=== PATIENT | female | born 1955 | race African-American/Black ===

== ENCOUNTER 2018-04-21 19:32 | Inpatient (IN) ==
[2018-04-21] MEDS ORDERED: DEXTROSE 50% 25 GM/50 ML SYRINGE IV STA (19:57)
[2018-04-21] MEDS ORDERED: SODIUM CHLORIDE 0.9% 1,000 ML IV STA ×2 (19:57→21:25)
[2018-04-21] MEDS ORDERED: PANTOPRAZOLE 40 MG VIAL IV STA (19:59)
[2018-04-21] MEDS ORDERED: ONDANSETRON 4 MG/2 ML VIAL IV STA (19:59)
[2018-04-21] MEDS ORDERED: LOPERAMIDE 2 MG CAPSULE PO STA (19:59)
[2018-04-21] MEDS ORDERED: METOCLOPRAMIDE 10 MG/2 ML VIAL IV STA (19:59)
[2018-04-21 20:50] LABS: Basophils # 0.1 10*3/uL (0.0-0.2); Basophils % 0.3 % (0.0-0.8); Eosinophils # 3.7 10*3/uL (0.0-0.87); Eosinophils % 22.7 % (0.00-10.9); Hematocrit 45.8 VOL% (35.7-47.0); Hemoglobin 14.4 GM/DL (12.0-16.0); Immature Granulocytes % 6.1 %; Immature Granulocytes Absolute 0.98 #; Lymphocytes # 0.5 10*3/uL (1.4-4.0); Lymphocytes % 2.9 % (21.3-54.2); Mean Corpuscular HGB Conc 31.4 GM/DL (32-36); Mean Corpuscular Hemoglobin 30 PG (27-34); Mean Corpuscular Volume 94.8 FL (87-102); Mean Platelet Volume 10.8 FL (9.6-12.0); Monocytes # 1.6 10*3/uL (0.11-0.8); Monocytes % 10.1 % (1.7-12.7); Neutrophils # 9.3 10*3/uL (1.4-7.4); Neutrophils % 57.9 % (38.7-73.9); Platelet Count 137 T/CUMM (130-400); Red Blood Count 4.83 MC/CUMM (3.8-5.5); Red Cell Distribution Width 11.7 % (9.3-17.3); White Blood Count 16.1 T/CUMM (4-12)
[2018-04-21 21:01] LABS: INR 1.3; PT Patient Result 13.8 SECS; Partial Thromboplastin Time 36.1 SECS (0-40)
[2018-04-21 21:15] LABS: Alanine Aminotransferase 21 U/L (13-56); Albumin 3.1 G/DL (3.4-5.0); Alkaline Phosphatase 83 U/L (45-117); Aspartate Amino Transferase 47 U/L (0-37); Blood Urea Nitrogen 36 MG/DL (7-18); Glucose 81 MG/DL (74-106); Osmolality,Calculated 283.5 MOS/KG (273-304); Potassium 2.9 MMOL/L (3.5-5.1); Sodium 139 MMOL/L (136-145)
[2018-04-21] MEDS ORDERED: LEVOFLOXACIN INJ 750 MG in PREMIX 1 EACH IV STA (21:23)
[2018-04-21 21:30] LABS: Band Neutrophils 2 % (0-10); Eosinophils 6 % (0-10); Lymphocytes 4 % (20-55); Segmented Neutrophils 78 % (50-85); Total Cells Counted 100
[2018-04-21 21:31] LABS: Platelet Estimate Adequate
[2018-04-21 21:57] LABS: Apearance,Urine CLOUDY (Clear); Bilirubin,Urine Negative (Negative); Blood, Urine Large mg/dL (Negative); Glucose,Urine (UA) Negative (Negative); Hyaline Casts,Urine 66 /LPF (0-3); Ketones,Urine 5 mg/dL (Negative); Mucus,Urine Moderate /LPF (Occasional); Nitrite,Urine Negative (Negative); Protein,Urine >=500 MG/DL; RBC,Urine 260 /HPF (0-4); Squamous Epithelial Cell,Urine Moderate /HPF (0-10); Urine Color Yellow (Yellow); Urine Specific Gravity 1.018 (1.001-1.035); Urine Urobilinogen < 2.0 EU/DL (0.2-1.0); WBC,Urine 1514 /HPF (0-6)
[2018-04-21] MEDS ORDERED: ACETAMINOPHEN 500 MG TABLET ONE (22:04)
[2018-04-21 22:18] LABS: Lactic Acid 6.7 MMOL/L (0.4-2.0)
[2018-04-21] MEDS ORDERED: GLUCAGON 1 MG VIAL IM PRN ×2 (22:35→23:04)
[2018-04-21] MEDS ORDERED: DEXTROSE 50% 25 GM/50 ML VIAL IV PRN ×2 (22:35→23:04)
[2018-04-21] MEDS ORDERED: ACETAMINOPHEN 325 MG TABLET PO PRN (22:35)
[2018-04-21] MEDS ORDERED: ONDANSETRON 4 MG/2 ML VIAL IV PRN (22:35)
[2018-04-21] MEDS ORDERED: clonazePAM 0.5 MG TABLET PO PRN (22:40)
[2018-04-21] MEDS ORDERED: POTASSIUM CHLORIDE INJ 40 MEQ in SODIUM CHLORIDE 0.9% 1,000 ML IV SCH (23:00)
[2018-04-21] MEDS ORDERED: cefTRIAXone 1,000 MG in SODIUM CHLORIDE 0.9% 100 ML IV SCH (23:00)
[2018-04-21] MEDS ORDERED: ACETAMINOPHEN 500 MG TABLET PO PRN (23:05)
[2018-04-21] MEDS ORDERED: DEXT 5% NACL 0.9% KCL 40 MEQ 40 MEQ/1,000 ML BAG IV SCH (23:30)
[2018-04-21] MEDS ORDERED: NOREPINEPHRINE 4 MG/4 ML VIAL IV ONE (23:38)
[2018-04-21] MEDS ORDERED: VANCOMYCIN INJ 1,000 MG in SODIUM CHLORIDE 0.9% 250 ML IV ONE (23:39)
[2018-04-22] MEDS: SULFAMETHOX/TRIMETHOPRIM 400-80 MG TABLET PO SCH (00:58)
[2018-04-22] MEDS ORDERED: MEROPENEM 1,000 MG VIAL IV ONE (01:01)
[2018-04-22] MEDS: MEROPENEM 500 MG in SODIUM CHLORIDE 0.9% 100 ML IV SCH ×3 (01:14→23:15)
[2018-04-22] MEDS: predniSONE 10 MG TABLET PO SCH ×2 (01:47→09:12)
[2018-04-22 02:01] LABS: Lactic Acid 3.8 MMOL/L (0.4-2.0)
[2018-04-22 04:28] LABS: Basophils % 0.2 % (0.0-0.8); Eosinophils # 3.8 10*3/uL (0.0-0.87); Eosinophils % 22.6 % (0.00-10.9); Hematocrit 36.3 VOL% (35.7-47.0); Hemoglobin 11.7 GM/DL (12.0-16.0); Immature Granulocytes % 2.6 %; Immature Granulocytes Absolute 0.43 #; Lymphocytes # 0.3 10*3/uL (1.4-4.0); Lymphocytes % 1.6 % (21.3-54.2); Mean Corpuscular HGB Conc 32.2 GM/DL (32-36); Mean Corpuscular Hemoglobin 31 PG (27-34); Mean Corpuscular Volume 94.8 FL (87-102); Monocytes # 1.2 10*3/uL (0.11-0.8); Monocytes % 7.2 % (1.7-12.7); Neutrophils % 65.8 % (38.7-73.9); Platelet Count 106 T/CUMM (130-400); Red Blood Count 3.83 MC/CUMM (3.8-5.5); Red Cell Distribution Width 11.8 % (9.3-17.3); White Blood Count 16.7 T/CUMM (4-12)
[2018-04-22 04:51] LABS: Calcium 8.1 MG/DL (8.5-10.1); Osmolality,Calculated 285.7 MOS/KG (273-304); Potassium 3.3 MMOL/L (3.5-5.1)
[2018-04-22] MEDS ORDERED: POTASSIUM CHLORIDE RIDER 20 MEQ in PREMIX 1 EACH IV PRN (04:54)
[2018-04-22] MEDS ORDERED: POTASSIUM CHLORIDE RIDER 10 MEQ in PREMIX 1 EACH IV PRN ×2 (04:55→05:02)
[2018-04-22 04:59] LABS: Eosinophils 1 % (0-10); Lymphocytes 4 % (20-55); Segmented Neutrophils 88 % (50-85); Total Cells Counted 100
[2018-04-22] MEDS ORDERED: MAGNESIUM SULF RIDER 4 GM in PREMIX 1 EACH IV PRN (04:59)
[2018-04-22] MEDS ORDERED: MAGNESIUM SULF RIDER 2 GM in PREMIX 1 EACH IV PRN (04:59)
[2018-04-22 05:00] LABS: Platelet Estimate Decreased
[2018-04-22] MEDS: POTASSIUM CHLORIDE RIDER 20 MEQ in PREMIX 1 EACH IV PRN ×2 (05:23→09:33)
[2018-04-22] MEDS: INSULIN REGULAR 100 UNIT/ML SUBCUT SCH ×2 (08:18→16:46)
[2018-04-22] MEDS ORDERED: predniSONE 20 MG TABLET PO SCH (09:00)
[2018-04-22] MEDS ORDERED: amLODIPine 5 MG TABLET PO SCH (09:00)
[2018-04-22] MEDS ORDERED: CETIRIZINE 10 MG TABLET PO SCH (09:00)
[2018-04-22] MEDS ORDERED: MAGNESIUM OXIDE 400 MG TABLET PO SCH (09:00)
[2018-04-22] MEDS ORDERED: PREDNISONE 10 MG PO SCH (09:00)
[2018-04-22] MEDS ORDERED: METOPROLOL TARTRATE 50 MG TABLET PO SCH (09:00)
[2018-04-22] MEDS ORDERED: METOPROLOL TARTRATE 100 MG TABLET PO SCH (09:00)
[2018-04-22] MEDS ORDERED: PANTOPRAZOLE 40 MG TABLET PO SCH (09:00)
[2018-04-22] MEDS: TACROLIMUS 0.5 MG CAPSULE PO SCH ×3 (09:09→22:19)
[2018-04-22] MEDS: MYCOPHENOLATE MOFETIL 250 MG CAPSULE PO SCH ×3 (09:09→22:19)
[2018-04-22] MEDS: ENOXAPARIN 30 MG/0.3 ML SYRINGE SUBCUT SCH (09:12)
[2018-04-22] MEDS: ASPIRIN EC 81 MG TABLET PO SCH (09:12)
[2018-04-22] MEDS: NOREPINEPHRINE 8 MG in SODIUM CHLORIDE 0.9% 242 ML IV PRN ×4 (09:14→22:30)
[2018-04-22] MEDS ORDERED: ACETAMINOPHEN 650 MG SUPP RECTAL ONE (09:45)
[2018-04-22] MEDS ORDERED: ACETAMINOPHEN 650 MG SUPP RECTAL PRN (09:46)
[2018-04-22 10:10] LABS: ABG Base Excess -7.8 MMOL/L (-2.5-2.5); ABG HCO3 13.3 MMOL/L (20-26); ABG Oxygen Saturation 95.1 % (95-100); ABG PH 7.478 (7.35-7.45); ABG PO2 75.1 MM HG (80-95); ABG TCO2 13.8 MMOL/L (23-27); Allen Test Positive
[2018-04-22 10:18] LABS: ABG PCO2 18.3 MM HG (35-48)
[2018-04-22 10:46] LABS: Calcium 8.6 MG/DL (8.5-10.1); Osmolality,Calculated 286.7 MOS/KG (273-304); Potassium 4.8 MMOL/L (3.5-5.1)
[2018-04-22] MEDS: SODIUM CHLORIDE 0.9% 1,000 ML IV SCH (11:02)
[2018-04-22] MEDS: SODIUM BICARB INJ 100 MEQ in DEXTROSE 5% 1,000 ML IV SCH ×2 (11:17→22:29)
[2018-04-22] MEDS ORDERED: SODIUM CHLORIDE 0.9% 250 ML IV ONE (12:11)
[2018-04-22] MEDS: HYDROCORTISONE 100 MG VIAL IV SCH ×2 (12:15→20:19)
[2018-04-22] MEDS: NEOMYCIN/POLYMYXIN/BACITRACIN OINT 0.9 GM PACK TOP SCH (12:15)
[2018-04-22 15:23] LABS: Osmolality,Calculated 291.7 MOS/KG (273-304); Potassium 4.7 MMOL/L (3.5-5.1)
[2018-04-22] MEDS ORDERED: VANCOMYCIN INJ 1,000 MG in SODIUM CHLORIDE 0.9% 250 ML IV PRN (18:59)
[2018-04-22] MEDS: ATORVASTATIN 10 MG TABLET PO SCH (22:19)
[2018-04-23] MEDS: HYDROCORTISONE 100 MG VIAL IV SCH ×3 (03:29→19:55)
[2018-04-23 04:04] LABS: Basophils # 0.1 10*3/uL (0.0-0.2); Basophils % 0.3 % (0.0-0.8); Eosinophils # 5.7 10*3/uL (0.0-0.87); Eosinophils % 23.5 % (0.00-10.9); Hematocrit 34.9 VOL% (35.7-47.0); Hemoglobin 11.3 GM/DL (12.0-16.0); Immature Granulocytes % 3.6 %; Immature Granulocytes Absolute 0.88 #; Lymphocytes # 0.8 10*3/uL (1.4-4.0); Lymphocytes % 3.3 % (21.3-54.2); Mean Corpuscular HGB Conc 32.4 GM/DL (32-36); Mean Corpuscular Hemoglobin 30 PG (27-34); Mean Corpuscular Volume 92.3 FL (87-102); Mean Platelet Volume 11.3 FL (9.6-12.0); Monocytes # 1.6 10*3/uL (0.11-0.8); Monocytes % 6.7 % (1.7-12.7); Neutrophils # 15.3 10*3/uL (1.4-7.4); Neutrophils % 62.6 % (38.7-73.9); Platelet Count 86 T/CUMM (130-400); Red Blood Count 3.78 MC/CUMM (3.8-5.5); Red Cell Distribution Width 11.9 % (9.3-17.3); White Blood Count 24.4 T/CUMM (4-12)
[2018-04-23 04:28] LABS: Calcium 7.7 MG/DL (8.5-10.1); Osmolality,Calculated 300.7 MOS/KG (273-304); Potassium 4.1 MMOL/L (3.5-5.1)
[2018-04-23 04:29] LABS: Band Neutrophils 3 % (0-10); Eosinophils 21 % (0-10); Lymphocytes 3 % (20-55); Platelet Estimate Decreased; Segmented Neutrophils 65 % (50-85); Total Cells Counted 100
[2018-04-23 04:30] LABS: Anisocytosis 1+; Microcytosis 1+; Polychromasia 2+
[2018-04-23] MEDS: NOREPINEPHRINE 8 MG in SODIUM CHLORIDE 0.9% 242 ML IV PRN (04:42)
[2018-04-23] MEDS: INSULIN REGULAR 100 UNIT/ML SUBCUT SCH ×2 (08:14→16:53)
[2018-04-23] MEDS: SODIUM BICARB INJ 100 MEQ in DEXTROSE 5% 1,000 ML IV SCH ×2 (09:53→22:10)
[2018-04-23] MEDS: MYCOPHENOLATE MOFETIL 250 MG CAPSULE PO SCH ×2 (09:54→20:19)
[2018-04-23] MEDS: ENOXAPARIN 30 MG/0.3 ML SYRINGE SUBCUT SCH (09:54)
[2018-04-23] MEDS: SULFAMETHOX/TRIMETHOPRIM 400-80 MG TABLET PO SCH (09:55)
[2018-04-23] MEDS: NEOMYCIN/POLYMYXIN/BACITRACIN OINT 0.9 GM PACK TOP SCH (09:55)
[2018-04-23] MEDS: ASPIRIN EC 81 MG TABLET PO SCH (09:55)
[2018-04-23] MEDS: TACROLIMUS 0.5 MG CAPSULE PO SCH ×2 (09:56→20:19)
[2018-04-23] MEDS: PANTOPRAZOLE 40 MG VIAL IV SCH (09:56)
[2018-04-23] MEDS: MEROPENEM 500 MG in SODIUM CHLORIDE 0.9% 100 ML IV SCH ×2 (11:16→23:38)
[2018-04-23] MEDS: INSULIN NPH 100 UNIT/ML SUBCUT SCH (16:54)
[2018-04-23] MEDS: ATORVASTATIN 10 MG TABLET PO SCH (20:19)
[2018-04-24] MEDS: HYDROCORTISONE 100 MG VIAL IV SCH ×3 (03:29→20:34)
[2018-04-24 03:40] LABS: Basophils % 0.1 % (0.0-0.8); Eosinophils # 2.4 10*3/uL (0.0-0.87); Eosinophils % 23.2 % (0.00-10.9); Hematocrit 31.4 VOL% (35.7-47.0); Hemoglobin 10.1 GM/DL (12.0-16.0); Immature Granulocytes % 9.5 %; Immature Granulocytes Absolute 0.96 #; Lymphocytes # 0.3 10*3/uL (1.4-4.0); Lymphocytes % 2.8 % (21.3-54.2); Mean Corpuscular HGB Conc 32.2 GM/DL (32-36); Mean Corpuscular Hemoglobin 29 PG (27-34); Mean Corpuscular Volume 91.5 FL (87-102); Mean Platelet Volume 11.1 FL (9.6-12.0); Monocytes # 0.4 10*3/uL (0.11-0.8); Monocytes % 3.7 % (1.7-12.7); Neutrophils # 6.2 10*3/uL (1.4-7.4); Neutrophils % 60.7 % (38.7-73.9); Red Blood Count 3.43 MC/CUMM (3.8-5.5); White Blood Count 10.2 T/CUMM (4-12)
[2018-04-24 03:50] LABS: Platelet Count 60 T/CUMM (130-400)
[2018-04-24 04:07] LABS: Calcium 7.8 MG/DL (8.5-10.1); Osmolality,Calculated 301.3 MOS/KG (273-304); Potassium 3.3 MMOL/L (3.5-5.1)
[2018-04-24 05:14] LABS: Burr Cells 1+; Eosinophils 27 % (0-10); Lymphocytes 3 % (20-55); Metamyelocytes 1 %; Platelet Estimate Decreased; Segmented Neutrophils 65 % (50-85)
[2018-04-24 05:15] LABS: Ovalocytes 2+
[2018-04-24 05:16] LABS: Total Cells Counted 100
[2018-04-24] MEDS: SODIUM BICARB INJ 100 MEQ in DEXTROSE 5% 1,000 ML IV SCH (06:10)
[2018-04-24] MEDS: POTASSIUM CHLORIDE RIDER 20 MEQ in PREMIX 1 EACH IV PRN (06:16)
[2018-04-24] MEDS: POTASSIUM CHLORIDE 20 MEQ TABLET PO SCH ×3 (07:52→19:25)
[2018-04-24] MEDS: INSULIN NPH 100 UNIT/ML SUBCUT SCH ×2 (07:53→16:04)
[2018-04-24] MEDS: INSULIN REGULAR 100 UNIT/ML SUBCUT SCH ×2 (07:53→16:05)
[2018-04-24] MEDS: MYCOPHENOLATE MOFETIL 250 MG CAPSULE PO SCH ×2 (09:30→20:34)
[2018-04-24] MEDS: TACROLIMUS 0.5 MG CAPSULE PO SCH ×2 (09:30→20:33)
[2018-04-24] MEDS: NEOMYCIN/POLYMYXIN/BACITRACIN OINT 0.9 GM PACK TOP SCH (09:31)
[2018-04-24] MEDS: ENOXAPARIN 30 MG/0.3 ML SYRINGE SUBCUT SCH (09:31)
[2018-04-24] MEDS: PANTOPRAZOLE 40 MG VIAL IV SCH (09:31)
[2018-04-24] MEDS: ASPIRIN EC 81 MG TABLET PO SCH (09:31)
[2018-04-24] MEDS: MEROPENEM 500 MG in SODIUM CHLORIDE 0.9% 100 ML IV SCH (11:53)
[2018-04-24] MEDS: ATORVASTATIN 10 MG TABLET PO SCH (20:34)
[2018-04-25] MEDS: MEROPENEM 500 MG in SODIUM CHLORIDE 0.9% 100 ML IV SCH ×2 (00:09→13:04)
[2018-04-25] MEDS: HYDROCORTISONE 100 MG VIAL IV SCH ×3 (03:46→20:09)
[2018-04-25 04:53] LABS: Calcium 8.4 MG/DL (8.5-10.1); Osmolality,Calculated 301.8 MOS/KG (273-304); Potassium 4.1 MMOL/L (3.5-5.1)
[2018-04-25] MEDS: ENOXAPARIN 40 MG/0.4 ML SYRINGE SUBCUT SCH (10:03)
[2018-04-25] MEDS: MYCOPHENOLATE MOFETIL 250 MG CAPSULE PO SCH ×2 (10:03→20:10)
[2018-04-25] MEDS: PANTOPRAZOLE 40 MG TABLET PO SCH (10:03)
[2018-04-25] MEDS: TACROLIMUS 0.5 MG CAPSULE PO SCH ×2 (10:03→20:11)
[2018-04-25] MEDS: ASPIRIN EC 81 MG TABLET PO SCH (10:03)
[2018-04-25] MEDS: NEOMYCIN/POLYMYXIN/BACITRACIN OINT 0.9 GM PACK TOP SCH (10:04)
[2018-04-25] MEDS: INSULIN REGULAR 100 UNIT/ML SUBCUT SCH ×2 (10:04→16:30)
[2018-04-25] MEDS: INSULIN NPH 100 UNIT/ML SUBCUT SCH ×2 (10:04→16:30)
[2018-04-25] MEDS: ATORVASTATIN 10 MG TABLET PO SCH (20:11)
[2018-04-26] MEDS: MEROPENEM 500 MG in SODIUM CHLORIDE 0.9% 100 ML IV SCH ×2 (00:15→13:03)
[2018-04-26] MEDS: HYDROCORTISONE 100 MG VIAL IV SCH ×3 (04:38→20:49)
[2018-04-26 05:13] LABS: Eosinophils # 0.6 10*3/uL (0.0-0.87); Eosinophils % 14.9 % (0.00-10.9); Hematocrit 28.9 VOL% (35.7-47.0); Hemoglobin 9.5 GM/DL (12.0-16.0); Immature Granulocytes % 1.3 %; Immature Granulocytes Absolute 0.05 #; Lymphocytes # 0.2 10*3/uL (1.4-4.0); Lymphocytes % 4.3 % (21.3-54.2); Mean Corpuscular HGB Conc 32.9 GM/DL (32-36); Mean Corpuscular Hemoglobin 30 PG (27-34); Mean Corpuscular Volume 92.6 FL (87-102); Mean Platelet Volume 12.9 FL (9.6-12.0); Monocytes # 0.2 10*3/uL (0.11-0.8); Monocytes % 5.3 % (1.7-12.7); Neutrophils # 2.9 10*3/uL (1.4-7.4); Neutrophils % 74.2 % (38.7-73.9); Red Blood Count 3.12 MC/CUMM (3.8-5.5); Red Cell Distribution Width 12.3 % (9.3-17.3)
[2018-04-26 05:14] LABS: Platelet Count 54 T/CUMM (130-400)
[2018-04-26 05:38] LABS: Eosinophils 7 % (0-10); Hypochromasia 1+; Lymphocytes 3 % (20-55); Ovalocytes Slight; Platelet Estimate Decreased; Segmented Neutrophils 79 % (50-85); Total Cells Counted 100
[2018-04-26 05:39] LABS: Microcytosis Slight
[2018-04-26 05:41] LABS: Calcium 8.7 MG/DL (8.5-10.1); Free T4 (Free Thyroxine) 0.68 NG/DL (0.76-1.46); Osmolality,Calculated 302.8 MOS/KG (273-304); Potassium 3.8 MMOL/L (3.5-5.1); Risk Ratio 8.55; VLDL CHOLESTEROL 40.8 MG/DL
[2018-04-26] MEDS: MYCOPHENOLATE MOFETIL 250 MG CAPSULE PO SCH ×2 (09:16→20:45)
[2018-04-26] MEDS: TACROLIMUS 0.5 MG CAPSULE PO SCH ×2 (09:16→20:45)
[2018-04-26] MEDS: SULFAMETHOX/TRIMETHOPRIM 400-80 MG TABLET PO SCH (09:16)
[2018-04-26] MEDS: PANTOPRAZOLE 40 MG TABLET PO SCH (09:17)
[2018-04-26] MEDS: ENOXAPARIN 40 MG/0.4 ML SYRINGE SUBCUT SCH (09:17)
[2018-04-26] MEDS: NEOMYCIN/POLYMYXIN/BACITRACIN OINT 0.9 GM PACK TOP SCH (09:17)
[2018-04-26] MEDS: INSULIN NPH 100 UNIT/ML SUBCUT SCH ×2 (09:17→17:09)
[2018-04-26] MEDS: INSULIN REGULAR 100 UNIT/ML SUBCUT SCH ×2 (09:17→17:08)
[2018-04-26] MEDS: ASPIRIN EC 81 MG TABLET PO SCH (09:18)
[2018-04-26] MEDS ORDERED: LEVOFLOXACIN 500 MG TABLET PO ONE (13:04)
[2018-04-26] MEDS: ATORVASTATIN 10 MG TABLET PO SCH (20:46)
[2018-04-27] MEDS: ACETAMINOPHEN 325 MG TABLET PO PRN (02:50)
[2018-04-27] MEDS: HYDROCORTISONE 100 MG VIAL IV SCH ×2 (04:29→13:09)
[2018-04-27 05:19] LABS: Eosinophils # 0.3 10*3/uL (0.0-0.87); Eosinophils % 12.1 % (0.00-10.9); Hematocrit 29.4 VOL% (35.7-47.0); Hemoglobin 9.6 GM/DL (12.0-16.0); Immature Granulocytes % 5.1 %; Immature Granulocytes Absolute 0.13 #; Lymphocytes # 0.3 10*3/uL (1.4-4.0); Lymphocytes % 10.2 % (21.3-54.2); Mean Corpuscular HGB Conc 32.7 GM/DL (32-36); Mean Corpuscular Hemoglobin 30 PG (27-34); Mean Corpuscular Volume 91.9 FL (87-102); Mean Platelet Volume 12.9 FL (9.6-12.0); Monocytes # 0.2 10*3/uL (0.11-0.8); Monocytes % 9.4 % (1.7-12.7); Neutrophils # 1.6 10*3/uL (1.4-7.4); Neutrophils % 63.2 % (38.7-73.9); Red Cell Distribution Width 12.3 % (9.3-17.3); White Blood Count 2.6 T/CUMM (4-12)
[2018-04-27 05:23] LABS: Platelet Count 64 T/CUMM (130-400)
[2018-04-27 05:48] LABS: Calcium 8.9 MG/DL (8.5-10.1); Osmolality,Calculated 297.8 MOS/KG (273-304)
[2018-04-27 05:52] LABS: Band Neutrophils 1 % (0-10); Eosinophils 1 % (0-10); Hypochromasia Slight; Lymphocytes 17 % (20-55); Platelet Estimate Decreased; Polychromasia Few; Segmented Neutrophils 72 % (50-85); Total Cells Counted 100
[2018-04-27] MEDS: INSULIN NPH 100 UNIT/ML SUBCUT SCH ×2 (09:19→16:13)
[2018-04-27] MEDS: TACROLIMUS 0.5 MG CAPSULE PO SCH ×2 (09:20→21:23)
[2018-04-27] MEDS: ENOXAPARIN 40 MG/0.4 ML SYRINGE SUBCUT SCH (09:20)
[2018-04-27] MEDS: LEVOFLOXACIN 250 MG TABLET PO SCH (09:20)
[2018-04-27] MEDS: PANTOPRAZOLE 40 MG TABLET PO SCH (09:20)
[2018-04-27] MEDS: INSULIN REGULAR 100 UNIT/ML SUBCUT SCH ×2 (09:20→16:12)
[2018-04-27] MEDS: MYCOPHENOLATE MOFETIL 250 MG CAPSULE PO SCH ×2 (09:20→21:23)
[2018-04-27] MEDS: NEOMYCIN/POLYMYXIN/BACITRACIN OINT 0.9 GM PACK TOP SCH (09:20)
[2018-04-27] MEDS: ASPIRIN EC 81 MG TABLET PO SCH (09:20)
[2018-04-27] MEDS: ATORVASTATIN 10 MG TABLET PO SCH (21:23)
[2018-04-28 05:05] LABS: Hematocrit 29.6 VOL% (35.7-47.0); Hemoglobin 9.5 GM/DL (12.0-16.0); Immature Granulocytes % 10.6 %; Immature Granulocytes Absolute 0.27 #; Lymphocytes # 0.4 10*3/uL (1.4-4.0); Lymphocytes % 14.5 % (21.3-54.2); Mean Corpuscular HGB Conc 32.1 GM/DL (32-36); Mean Corpuscular Hemoglobin 29 PG (27-34); Mean Corpuscular Volume 91.4 FL (87-102); Mean Platelet Volume 12.6 FL (9.6-12.0); Monocytes # 0.3 10*3/uL (0.11-0.8); Monocytes % 10.6 % (1.7-12.7); Neutrophils # 1.6 10*3/uL (1.4-7.4); Neutrophils % 64.3 % (38.7-73.9); Red Blood Count 3.24 MC/CUMM (3.8-5.5); White Blood Count 2.6 T/CUMM (4-12)
[2018-04-28 05:08] LABS: Platelet Count 63 T/CUMM (130-400)
[2018-04-28 05:36] LABS: Calcium 8.8 MG/DL (8.5-10.1); Potassium 2.6 MMOL/L (3.5-5.1)
[2018-04-28 05:46] LABS: Band Neutrophils 2 % (0-10); Eosinophils 3 % (0-10); Hypochromasia 2+; Lymphocytes 17 % (20-55); Metamyelocytes 1 %; Platelet Estimate Decreased; Segmented Neutrophils 65 % (50-85); Total Cells Counted 100
[2018-04-28] MEDS ORDERED: MAGNESIUM SULF RIDER 4 GM in PREMIX 1 EACH IV PRN (08:15)
[2018-04-28] MEDS ORDERED: MAGNESIUM SULF RIDER 2 GM in PREMIX 1 EACH IV PRN (08:15)
[2018-04-28] MEDS: INSULIN NPH 100 UNIT/ML SUBCUT SCH (08:21)
[2018-04-28] MEDS: INSULIN REGULAR 100 UNIT/ML SUBCUT SCH (08:21)
[2018-04-28] MEDS ORDERED: INSULIN NPH 100 UNIT/ML SUBCUT SCH (08:24)
[2018-04-28] MEDS ORDERED: predniSONE 20 MG TABLET PO SCH (09:00)
[2018-04-28] MEDS: ENOXAPARIN 40 MG/0.4 ML SYRINGE SUBCUT SCH (09:27)
[2018-04-28] MEDS: ACETAMINOPHEN 325 MG TABLET PO PRN (09:27)
[2018-04-28] MEDS: SULFAMETHOX/TRIMETHOPRIM 400-80 MG TABLET PO SCH (09:28)
[2018-04-28] MEDS: POTASSIUM CHLORIDE 20 MEQ TABLET PO PRN ×4 (09:28→16:10)
[2018-04-28] MEDS: MYCOPHENOLATE MOFETIL 250 MG CAPSULE PO SCH (09:28)
[2018-04-28] MEDS: ASPIRIN EC 81 MG TABLET PO SCH (09:29)
[2018-04-28] MEDS: LEVOFLOXACIN 250 MG TABLET PO SCH (09:29)
[2018-04-28] MEDS: NEOMYCIN/POLYMYXIN/BACITRACIN OINT 0.9 GM PACK TOP SCH (09:29)
[2018-04-28] MEDS: PANTOPRAZOLE 40 MG TABLET PO SCH (09:29)
[2018-04-28] MEDS: TACROLIMUS 0.5 MG CAPSULE PO SCH (09:32)
[2018-04-28 15:48] VITALS: BP 178/97
[2018-04-28] MEDS ORDERED: POTASSIUM CHLORIDE 20 MEQ TABLET PO SCH (21:00)
== END 2018-04-28 17:28 | disposition home health service (06) | DRG 720 ==
LOC: N.ED 19:32 → N.EDINP 22:35 → SUATTDRO 22:35 → N.5E 23:26 → N.ICU 04-22 00:17 → N.5E 04-24 16:25
PROVIDERS: ADMIT Internal Medicine Geriatric Medicine; ATTEND Internal Medicine

== ENCOUNTER 2018-07-08 11:20 | Inpatient (IN) ==
[2018-07-08 12:50] LABS: Hematocrit 33.6 VOL% (35.7-47.0); Hemoglobin 10.5 GM/DL (12.0-16.0); Immature Granulocytes % 3.5 %; Immature Granulocytes Absolute 0.18 #; Lymphocytes # 0.4 10*3/uL (1.4-4.0); Lymphocytes % 7.2 % (21.3-54.2); Mean Corpuscular HGB Conc 31.3 GM/DL (32-36); Mean Corpuscular Hemoglobin 31 PG (27-34); Mean Corpuscular Volume 100.3 FL (87-102); Mean Platelet Volume 10.6 FL (9.6-12.0); Monocytes # 0.3 10*3/uL (0.11-0.8); Monocytes % 5.5 % (1.7-12.7); Neutrophils # 4.3 10*3/uL (1.4-7.4); Neutrophils % 83.8 % (38.7-73.9); Platelet Count 132 T/CUMM (130-400); Red Blood Count 3.35 MC/CUMM (3.8-5.5); Red Cell Distribution Width 13.9 % (9.3-17.3); White Blood Count 5.1 T/CUMM (4-12)
[2018-07-08] MEDS ORDERED: GLUCAGON 1 MG VIAL IM PRN (12:51)
[2018-07-08] MEDS ORDERED: DEXTROSE 50% 25 GM/50 ML VIAL IV PRN (12:51)
[2018-07-08 13:19] LABS: Albumin 3.3 G/DL (3.4-5.0); Bilirubin,Total 0.7 MG/DL (0.2-1.0); Osmolality,Calculated 281.3 MOS/KG (273-304); Potassium 3.1 MMOL/L (3.5-5.1); Total Protein 6.5 G/DL (6.4-8.3)
[2018-07-08] MEDS ORDERED: POTASSIUM CHLORIDE 20 MEQ TABLET PO PRN (13:42)
[2018-07-08 14:16] LABS: Band Neutrophils 1 % (0-10); Hypochromasia Slight; Lymphocytes 11 % (20-55); Macrocytosis 1+; Platelet Estimate Adequate; Segmented Neutrophils 81 % (50-85); Total Cells Counted 100
[2018-07-08 14:17] LABS: Burr Cells Few; Helmet Cells Few
[2018-07-08 14:20] LABS: Ovalocytes Few
[2018-07-08] MEDS ORDERED: POTASSIUM CHLORIDE 20 MEQ TABLET PO ONE (14:27)
[2018-07-08 14:46] LABS: Apearance,Urine CLEAR (Clear); Bacteria,Urine Occasional /HPF (Few); Bilirubin,Urine Negative (Negative); Blood, Urine Negative (Negative); Glucose,Urine (UA) Negative (Negative); Ketones,Urine Negative (Negative); Nitrite,Urine Negative (Negative); Protein,Urine Negative; RBC,Urine <1 /HPF (0-4); Squamous Epithelial Cell,Urine Occasional /HPF (0-10); Urine Color Straw (Yellow); Urine Specific Gravity 1.005 (1.001-1.035); Urine Urobilinogen < 2.0 EU/DL (0.2-1.0); WBC,Urine <1 /HPF (0-6)
[2018-07-08] MEDS: predniSONE 10 MG TABLET PO SCH ×2 (14:50→15:34)
[2018-07-08] MEDS: DEXT 5% NACL 0.45% KCL 40 MEQ 40 MEQ/1,000 ML BAG IV SCH (14:51)
[2018-07-08] MEDS: MEROPENEM 500 MG in SODIUM CHLORIDE 0.9% 100 ML IV SCH (14:51)
[2018-07-08] MEDS ORDERED: MAGNESIUM SULF RIDER 2 GM in PREMIX 1 EACH IV ONE (15:35)
[2018-07-08] MEDS: INSULIN LISPRO 100 UNIT/ML SUBCUT SCH ×2 (16:30→21:05)
[2018-07-08] MEDS: TACROLIMUS 0.5 MG CAPSULE PO SCH (21:07)
[2018-07-08] MEDS ORDERED: TACROLIMUS 2 MG PO SCH (21:30)
[2018-07-08] MEDS: ATORVASTATIN 20 MG TABLET PO SCH (22:06)
[2018-07-08] MEDS: MYCOPHENOLATE MOFETIL 250 MG CAPSULE PO SCH (22:06)
[2018-07-08] MEDS: LOSARTAN 50 MG TABLET PO SCH (22:06)
[2018-07-08] MEDS: METOPROLOL TARTRATE 100 MG TABLET PO SCH (22:06)
[2018-07-08] MEDS: clonazePAM 0.5 MG TABLET PO SCH (22:06)
[2018-07-09] MEDS: MEROPENEM 500 MG in SODIUM CHLORIDE 0.9% 100 ML IV SCH (01:54)
[2018-07-09 04:42] LABS: Eosinophils # 0.4 10*3/uL (0.0-0.87); Eosinophils % 13.4 % (0.00-10.9); Hematocrit 28.5 VOL% (35.7-47.0); Hemoglobin 8.8 GM/DL (12.0-16.0); Immature Granulocytes % 7.6 %; Immature Granulocytes Absolute 0.22 #; Lymphocytes # 0.3 10*3/uL (1.4-4.0); Lymphocytes % 10.7 % (21.3-54.2); Mean Corpuscular HGB Conc 30.9 GM/DL (32-36); Mean Corpuscular Hemoglobin 31 PG (27-34); Mean Corpuscular Volume 100.4 FL (87-102); Monocytes # 0.2 10*3/uL (0.11-0.8); Monocytes % 7.9 % (1.7-12.7); Neutrophils # 1.8 10*3/uL (1.4-7.4); Neutrophils % 60.4 % (38.7-73.9); Platelet Count 106 T/CUMM (130-400); Red Blood Count 2.84 MC/CUMM (3.8-5.5); Red Cell Distribution Width 13.7 % (9.3-17.3); White Blood Count 2.9 T/CUMM (4-12)
[2018-07-09 05:22] LABS: Calcium 8.2 MG/DL (8.5-10.1); Osmolality,Calculated 284.5 MOS/KG (273-304); Potassium 3.9 MMOL/L (3.5-5.1); Thyroid Stimulating Hormone 1.13 uIU/ml (0.358-3.74)
[2018-07-09 05:33] LABS: Hypochromasia 1+; Lymphocytes 7 % (20-55); Myelocytes 1 %; Ovalocytes Slight; Segmented Neutrophils 83 % (50-85); Total Cells Counted 100
[2018-07-09 05:34] LABS: Macrocytosis 1+; Platelet Estimate Decreased
[2018-07-09] MEDS: ASPIRIN EC 81 MG TABLET PO SCH (08:44)
[2018-07-09] MEDS: MYCOPHENOLATE MOFETIL 250 MG CAPSULE PO SCH (08:44)
[2018-07-09] MEDS: CHOLECALCIFEROL 1,000 UNIT TABLET PO SCH (08:44)
[2018-07-09] MEDS: predniSONE 10 MG TABLET PO SCH (08:44)
[2018-07-09] MEDS: CETIRIZINE 10 MG TABLET PO SCH (08:44)
[2018-07-09] MEDS: TACROLIMUS 0.5 MG CAPSULE PO SCH ×2 (08:44→20:45)
[2018-07-09] MEDS: INSULIN LISPRO 100 UNIT/ML SUBCUT SCH ×4 (08:45→20:45)
[2018-07-09] MEDS: MAGNESIUM OXIDE 400 MG TABLET PO SCH (08:45)
[2018-07-09] MEDS: METOPROLOL TARTRATE 100 MG TABLET PO SCH ×2 (08:45→20:45)
[2018-07-09] MEDS: DEXT 5% NACL 0.45% KCL 40 MEQ 40 MEQ/1,000 ML BAG IV SCH (08:50)
[2018-07-09] MEDS: SODIUM BICARB INJ 100 MEQ in DEXTROSE 5% NACL 0.22% 1,000 ML IV SCH (11:12)
[2018-07-09] MEDS: clonazePAM 0.5 MG TABLET PO SCH (20:45)
[2018-07-09] MEDS: LOSARTAN 50 MG TABLET PO SCH (20:45)
[2018-07-09] MEDS: ATORVASTATIN 20 MG TABLET PO SCH (20:45)
[2018-07-09] MEDS ORDERED: SULFAMETHOX/TRIMETHOPRIM 400-80 MG TABLET PO SCH (21:15)
[2018-07-10 07:01] LABS: Eosinophils # 0.3 10*3/uL (0.0-0.87); Eosinophils % 13.7 % (0.00-10.9); Hematocrit 28.3 VOL% (35.7-47.0); Hemoglobin 8.8 GM/DL (12.0-16.0); Immature Granulocytes % 5.5 %; Immature Granulocytes Absolute 0.12 #; Lymphocytes # 0.4 10*3/uL (1.4-4.0); Lymphocytes % 16.9 % (21.3-54.2); Mean Corpuscular HGB Conc 31.1 GM/DL (32-36); Mean Corpuscular Hemoglobin 31 PG (27-34); Mean Corpuscular Volume 100.4 FL (87-102); Mean Platelet Volume 11.5 FL (9.6-12.0); Monocytes # 0.2 10*3/uL (0.11-0.8); Monocytes % 9.6 % (1.7-12.7); Neutrophils # 1.2 10*3/uL (1.4-7.4); Neutrophils % 54.3 % (38.7-73.9); Platelet Count 99 T/CUMM (130-400); Red Blood Count 2.82 MC/CUMM (3.8-5.5); Red Cell Distribution Width 13.9 % (9.3-17.3); White Blood Count 2.2 T/CUMM (4-12)
[2018-07-10 07:15] LABS: Calcium 7.9 MG/DL (8.5-10.1); Osmolality,Calculated 281.3 MOS/KG (273-304); Potassium 3.5 MMOL/L (3.5-5.1)
[2018-07-10 07:40] LABS: Anisocytosis 1+; Band Neutrophils 7 % (0-10); Lymphocytes 10 % (20-55); Nucleated Red Blood Cells 1 (0-5); Platelet Estimate Decreased; Poikilocytosis 1+; Segmented Neutrophils 75 % (50-85); Total Cells Counted 100
[2018-07-10 07:41] LABS: Helmet Cells Few; Tear Drop Cells Few
[2018-07-10] MEDS ORDERED: MAGNESIUM SULF RIDER 2 GM in PREMIX 1 EACH IV ONE (08:54)
[2018-07-10] MEDS: INSULIN LISPRO 100 UNIT/ML SUBCUT SCH ×4 (09:33→21:04)
[2018-07-10] MEDS: SODIUM BICARB INJ 100 MEQ in DEXTROSE 5% NACL 0.22% 1,000 ML IV SCH (09:51)
[2018-07-10] MEDS: TACROLIMUS 0.5 MG CAPSULE PO SCH ×2 (09:55→21:04)
[2018-07-10] MEDS: ACETAMINOPHEN 325 MG TABLET PO PRN (09:56)
[2018-07-10] MEDS: predniSONE 10 MG TABLET PO SCH (10:01)
[2018-07-10] MEDS: MAGNESIUM OXIDE 400 MG TABLET PO SCH (10:01)
[2018-07-10] MEDS: ASPIRIN EC 81 MG TABLET PO SCH (10:01)
[2018-07-10] MEDS: METOPROLOL TARTRATE 100 MG TABLET PO SCH ×2 (10:01→21:04)
[2018-07-10] MEDS: CHOLECALCIFEROL 1,000 UNIT TABLET PO SCH (10:01)
[2018-07-10] MEDS: CETIRIZINE 10 MG TABLET PO SCH (10:02)
[2018-07-10] MEDS: ATORVASTATIN 20 MG TABLET PO SCH (21:04)
[2018-07-10] MEDS: clonazePAM 0.5 MG TABLET PO SCH (21:04)
[2018-07-10] MEDS: LOSARTAN 50 MG TABLET PO SCH (21:04)
[2018-07-11 05:34] LABS: Eosinophils % 0.5 % (0.00-10.9); Hematocrit 28.1 VOL% (35.7-47.0); Hemoglobin 8.6 GM/DL (12.0-16.0); Immature Granulocytes % 4.7 %; Immature Granulocytes Absolute 0.09 #; Lymphocytes # 0.4 10*3/uL (1.4-4.0); Lymphocytes % 18.4 % (21.3-54.2); Mean Corpuscular HGB Conc 30.6 GM/DL (32-36); Mean Corpuscular Hemoglobin 31 PG (27-34); Mean Corpuscular Volume 101.8 FL (87-102); Mean Platelet Volume 11.3 FL (9.6-12.0); Monocytes # 0.1 10*3/uL (0.11-0.8); Monocytes % 6.8 % (1.7-12.7); Neutrophils # 1.3 10*3/uL (1.4-7.4); Neutrophils % 69.6 % (38.7-73.9); Platelet Count 99 T/CUMM (130-400); Red Blood Count 2.76 MC/CUMM (3.8-5.5); Red Cell Distribution Width 13.9 % (9.3-17.3); White Blood Count 1.9 T/CUMM (4-12)
[2018-07-11 05:59] LABS: Osmolality,Calculated 282.3 MOS/KG (273-304); Potassium 3.7 MMOL/L (3.5-5.1)
[2018-07-11 06:37] LABS: Anisocytosis 1+; Band Neutrophils 2 % (0-10); Lymphocytes 14 % (20-55); Macrocytosis Slight; Platelet Estimate Decreased; Poikilocytosis 1+; Segmented Neutrophils 76 % (50-85); Total Cells Counted 100
[2018-07-11] MEDS: INSULIN LISPRO 100 UNIT/ML SUBCUT SCH ×4 (07:58→21:05)
[2018-07-11] MEDS: MAGNESIUM OXIDE 400 MG TABLET PO SCH (08:03)
[2018-07-11] MEDS: CHOLECALCIFEROL 1,000 UNIT TABLET PO SCH (08:03)
[2018-07-11] MEDS: predniSONE 10 MG TABLET PO SCH (08:03)
[2018-07-11] MEDS: METOPROLOL TARTRATE 100 MG TABLET PO SCH ×2 (08:03→21:05)
[2018-07-11] MEDS: CETIRIZINE 10 MG TABLET PO SCH (08:03)
[2018-07-11] MEDS: ASPIRIN EC 81 MG TABLET PO SCH (08:03)
[2018-07-11] MEDS: SODIUM BICARB INJ 100 MEQ in DEXTROSE 5% NACL 0.22% 1,000 ML IV SCH (08:06)
[2018-07-11] MEDS: TACROLIMUS 0.5 MG CAPSULE PO SCH ×2 (09:59→21:05)
[2018-07-11] MEDS: clonazePAM 0.5 MG TABLET PO SCH (21:05)
[2018-07-11] MEDS: LOSARTAN 50 MG TABLET PO SCH (21:05)
[2018-07-11] MEDS: ATORVASTATIN 20 MG TABLET PO SCH (21:05)
[2018-07-12 05:27] LABS: Hematocrit 27.6 VOL% (35.7-47.0); Hemoglobin 8.5 GM/DL (12.0-16.0); Immature Granulocytes Absolute 0.04 #; Lymphocytes # 0.4 10*3/uL (1.4-4.0); Lymphocytes % 18.6 % (21.3-54.2); Mean Corpuscular HGB Conc 30.8 GM/DL (32-36); Mean Corpuscular Hemoglobin 31 PG (27-34); Mean Corpuscular Volume 101.5 FL (87-102); Mean Platelet Volume 11.2 FL (9.6-12.0); Monocytes # 0.2 10*3/uL (0.11-0.8); Neutrophils # 1.4 10*3/uL (1.4-7.4); Neutrophils % 71.4 % (38.7-73.9); Platelet Count 102 T/CUMM (130-400); Red Blood Count 2.72 MC/CUMM (3.8-5.5); Red Cell Distribution Width 13.5 % (9.3-17.3)
[2018-07-12 05:37] LABS: Calcium 8.1 MG/DL (8.5-10.1); Osmolality,Calculated 281.3 MOS/KG (273-304); Potassium 3.8 MMOL/L (3.5-5.1)
[2018-07-12 05:50] LABS: Lymphocytes 12 % (20-55); Segmented Neutrophils 83 % (50-85); Total Cells Counted 100
[2018-07-12 05:51] LABS: Acanthocytes Few; Hypochromasia 1+; Macrocytosis Slight
[2018-07-12 05:52] LABS: Platelet Estimate Adequate
[2018-07-12 07:58] VITALS: BP 133/77
[2018-07-12] MEDS: INSULIN LISPRO 100 UNIT/ML SUBCUT SCH (08:45)
[2018-07-12] MEDS: TACROLIMUS 0.5 MG CAPSULE PO SCH (08:47)
[2018-07-12] MEDS: ASPIRIN EC 81 MG TABLET PO SCH (08:47)
[2018-07-12] MEDS: predniSONE 10 MG TABLET PO SCH (08:47)
[2018-07-12] MEDS: CETIRIZINE 10 MG TABLET PO SCH (08:47)
[2018-07-12] MEDS: METOPROLOL TARTRATE 100 MG TABLET PO SCH (08:47)
[2018-07-12] MEDS: CHOLECALCIFEROL 1,000 UNIT TABLET PO SCH (08:47)
[2018-07-12] MEDS: MAGNESIUM OXIDE 400 MG TABLET PO SCH (08:47)
[2018-07-12] MEDS ORDERED: MYCOPHENOLATE MOFETIL 250 MG CAPSULE PO SCH (09:00)
[2018-07-12] MEDS: ACETAMINOPHEN 325 MG TABLET PO PRN (10:46)
== END 2018-07-12 12:05 | disposition home or self-care (01) | DRG 420 ==
LOC: N.5E 11:20 → SUATTDRO 11:20
PROVIDERS: ADMIT Internal Medicine; ATTEND Internal Medicine